=== PATIENT | female | born 1945 | race Caucasian/White ===

== ENCOUNTER 2022-01-20 19:52 | Inpatient (IN) | payer MEDICARE, OTHER ==
[~2022-01-20] VITALS: Ht 162.6 cm; Wt 50.0 kg
[~2022-01-20 19:52] MED LIST: ALBU8.5H17 INH; BUDE10.22 INH; GABA-530 PO; LOSA100T57 PO; MONT-40 PO; TRIA1TAB3 PO
[2022-01-20 20:40] LABS: BASOPHILS % (AUTO) 0.3 % (0-1); EOSINOPHILS # (AUTO) 0.1 X10'3 (0-0.9); EOSINOPHILS % (AUTO) 0.8 % (0-6); HEMOGLOBIN 12.7 g/dl (12.0-16.0); LYMPHOCYTES # (AUTO) 1.2 X10'3 (1.1-4.8); LYMPHOCYTES % (AUTO) 15.1 % (21-51); MEAN CORPUSCULAR HEMOGLOBIN 33.5 PG (27.0-31.0); MEAN CORPUSCULAR HGB CONC 34.3 g/dL (33.0-36.5); MEAN CORPUSCULAR VOLUME 97.5 FL (78-98); MEAN PLATELET VOLUME 6.8 FL (7.4-10.4); MONOCYTES % (AUTO) 13.4 % (2-12); NEUTROPHILS # (AUTO) 5.4 X10'3 (1.8-7.7); NEUTROPHILS % (AUTO) 70.4 % (42-75); PLATELET COUNT 239 X10'3 (140-440); RED BLOOD COUNT 3.79 X10'6 (4.20-5.60); RED CELL DISTRIBUTION WIDTH 12.7 % (11.5-14.5); WHITE BLOOD COUNT 7.7 X10'3 (4.5-11.0)
[2022-01-20] MEDS ORDERED: bumetanide 0.25mg/ml 4ml vial IV SCH (20:50)
[2022-01-20] MEDS ORDERED: bumetanide 0.25mg/ml 4ml vial IV ONE (20:50)
[2022-01-20 20:53] LABS: APTT 26 SECONDS (22-32)
[2022-01-20 21:06] LABS: ALANINE AMINOTRANSFERASE 32 U/L (12-78); ALBUMIN 3.5 G/DL (3.4-5.0); ALBUMIN/GLOBULIN RATIO 1.1 (1.1-1.5); ALKALINE PHOSPHATASE 66 IU/L (46-116); ANION GAP 2 (8-16); ASPARTATE AMINO TRANSFERASE 38 U/L (10-37); BILIRUBIN,TOTAL 0.4 MG/DL (0.1-1.0); BLOOD UREA NITROGEN 28 MG/DL (7-18); BUN/CREATININE RATIO 26.7 (6.6-38.0); CALCIUM 9.2 MG/DL (8.5-10.1); CHLORIDE 96 MMOL/L (99-107); CREATININE 1.05 MG/DL (0.40-0.90); GLUCOSE 127 MG/DL (70-104); SODIUM 142 MMOL/L (135-145); TOTAL PROTEIN 6.8 G/DL (6.4-8.2); eGFR 51 ML/MIN
[2022-01-20 21:14] LABS: TOTAL CARBON DIOXIDE 43.9 MMOL/L (24-32)
--- NOTE | 2022-01-20 22:31 | NUR ---
PT OK TO EAT PER AMARJIT BISWAS, PROVIDED FOOD THAT FAMILY BROUGHT IN
[2022-01-20] MEDS ORDERED: magnesium 4gm in 100ml NS 100 ML IV PRN (22:40)
[2022-01-20] MEDS ORDERED: ondansetron/PF 4mg/2ml inj IV PRN (22:40)
[2022-01-20] MEDS ORDERED: potassium Cl 40MEQ/1/2NS 520ml 520 ML IV PRN (22:40)
[2022-01-20] MEDS ORDERED: magnesium hydroxide 30ml (MOM) UD suspension PO PRN (22:40)
[2022-01-20] MEDS ORDERED: mag hydrox/Alum hydrox/simeth 30ml oral suspension PO PRN (22:40)
[2022-01-20] MEDS ORDERED: acetaminophen 325mg tablet PO PRN (22:40)
[2022-01-20] MEDS ORDERED: magnesium Cl slow-release 64mg tablet PO PRN (22:40)
[2022-01-20] MEDS ORDERED: potassium Cl 20 mEq SR tablet PO PRN ×2 (22:40)
--- NOTE | 2022-01-20 23:51 | NUR ---
PT HAVING INCREASED SOB AND DECREASE IN 02 SAT, RN PAGED RT AT THIS TIME FOR TREATMENT
[2022-01-21] MEDS: albuterol 2.5 MG/3 ML nebule NEB PRN ×3 (00:02→12:09)
--- NOTE | 2022-01-21 00:30 | NUR ---
Patient in room PCU 3024. I have received report from Jodee MORE RN and had the opportunity to ask questions and assume patient care.
[2022-01-21 01:30] VITALS: BP 110/53
--- NOTE | 2022-01-21 01:30 | NUR ---
RECEIVED THE PT ON UNIT AT 0100, MADE SURE TO GET HER COMFORTABLE PT WAS HAVING SEVERE DYSPNEA. VS RECORDED ALL WNL
[2022-01-21 06:00] VITALS: BP 84/46
--- NOTE | 2022-01-21 06:30 | NUR ---
Patient in room PCU 3024. I have received report from Suzanne KAY and had the opportunity to ask questions and assume patient care.
--- NOTE | 2022-01-21 06:56 | NUR ---
Problems reprioritized. Patient report given, questions answered & plan of care reviewed with Cici KAY.
[2022-01-21 07:03] LABS: BASOPHILS % (AUTO) 0.5 % (0-1); EOSINOPHILS # (AUTO) 0.2 X10'3 (0-0.9); EOSINOPHILS % (AUTO) 2.6 % (0-6); HEMATOCRIT 32.4 % (35.0-45.0); HEMOGLOBIN 11.1 g/dl (12.0-16.0); LYMPHOCYTES % (AUTO) 15.3 % (21-51); MEAN CORPUSCULAR HEMOGLOBIN 33.8 PG (27.0-31.0); MEAN CORPUSCULAR HGB CONC 34.1 g/dL (33.0-36.5); MEAN PLATELET VOLUME 6.9 FL (7.4-10.4); MONOCYTES # (AUTO) 1.5 X10'3 (0-0.9); MONOCYTES % (AUTO) 21.5 % (2-12); NEUTROPHILS # (AUTO) 4.1 X10'3 (1.8-7.7); NEUTROPHILS % (AUTO) 60.1 % (42-75); PLATELET COUNT 209 X10'3 (140-440); RED BLOOD COUNT 3.27 X10'6 (4.20-5.60); RED CELL DISTRIBUTION WIDTH 12.7 % (11.5-14.5); WHITE BLOOD COUNT 6.8 X10'3 (4.5-11.0)
[2022-01-21 07:24] LABS: ALANINE AMINOTRANSFERASE 26 U/L (12-78); ALBUMIN 2.9 G/DL (3.4-5.0); ALKALINE PHOSPHATASE 56 IU/L (46-116); ANION GAP 0 (8-16); ASPARTATE AMINO TRANSFERASE 32 U/L (10-37); BILIRUBIN,TOTAL 0.3 MG/DL (0.1-1.0); BLOOD UREA NITROGEN 34 MG/DL (7-18); BUN/CREATININE RATIO 24.8 (6.6-38.0); CALCIUM 8.8 MG/DL (8.5-10.1); CHLORIDE 97 MMOL/L (99-107); CREATININE 1.37 MG/DL (0.40-0.90); GLUCOSE 120 MG/DL (70-104); MAGNESIUM 1.8 MG/DL (1.5-2.4); POTASSIUM 3.4 MMOL/L (3.5-5.1); SODIUM 141 MMOL/L (135-145); TOTAL PROTEIN 5.8 G/DL (6.4-8.2); eGFR 37 ML/MIN
[2022-01-21 07:29] LABS: TOTAL CARBON DIOXIDE 43.6 MMOL/L (24-32)
--- NOTE | 2022-01-21 07:32 | NUR ---
PAGER ID: [phone] MESSAGE: [id number] Blank, CO2 43.6, thank you. Ludmila KAY
[2022-01-21] MEDS: K and/or MAG REPLACEMENT MC SCH ×2 (08:00→19:46)
[2022-01-21] MEDS: docusate sod 100mg capsule PO SCH ×2 (08:13→20:22)
[2022-01-21] MEDS: methylPREDNISolone sod succ/PF 40mg inj. IV SCH ×2 (08:13→20:24)
[2022-01-21] MEDS: heparin, porcine 5000 units/ml vial SQ SCH ×2 (08:13→20:23)
[2022-01-21 11:00] VITALS: BP 112/57
[2022-01-21] MEDS ORDERED: ESCI5TAB17 PO (11:08)
[2022-01-21] MEDS ORDERED: PRED2.5T4 PO (11:08)
[2022-01-21] MEDS ORDERED: DILT120C91 PO (11:08)
--- NOTE | 2022-01-21 11:54 | NUR ---
Noted pt BMI 18.9 low for age. Pt admit DX COPD exacerbation w/ initial confusion both reporting no wt loss and 2-13 pounds wt loss past 3 months per EMR. Pt now AOx4 w/ normal strength, no edema/wounds, and PO 50% first heart healthy breakfast following late night meal brought in from family last night per EMR. Current bed scaled wt 50kg w/ prior admit 01/2021 54kg bed scale ~7.5% loss 11 months non-severe. Pt lacks minimum malnutrition criteria at this time. ALENA d/w RN regarding liberalizing to regular diet if MD agreeable given pt age/wt. Will monitor for further malnutrition criteria and nutrition intervention needs. Addendum: 01/21/22 at [address] Amended: Links added.
[2022-01-21] MEDS ORDERED: GABA300C PO (12:51)
[2022-01-21] MEDS ORDERED: albuterol 2.5 MG/3 ML nebule NEB PRN (13:55)
[2022-01-21] MEDS: furosemide 20 MG/2 ML vial IV SCH (15:26)
[2022-01-21 15:29] VITALS: BP 105/52
[2022-01-21] MEDS: azithromycin 250mg tablet PO SCH (15:29)
[2022-01-21] MEDS: losartan 50mg tablet PO SCH (15:29)
[2022-01-21] MEDS: albuterol 2.5 MG/3 ML nebule NEB SCH ×2 (15:47→20:38)
--- NOTE | 2022-01-21 18:42 | NUR ---
Patient in room PCU 3024. I have received report from CHARLIE KAY and had the opportunity to ask questions and assume patient care.
--- NOTE | 2022-01-21 19:00 | NUR ---
REQUESTING TO SPEAK TO DAY SHIFT MD. TRYING TO GET INFORMATION REGARDING HER TREATMENT. WILL NOTIFY DAY SHIFT RN.
[2022-01-21] MEDS: gabapentin 300mg capsule PO SCH (20:22)
[2022-01-21] MEDS: budesonide 0.5mg/2ml UD nebule IH SCH (20:40)
[2022-01-21 22:00] VITALS: BP 103/58
[2022-01-22 02:00] VITALS: BP 108/72
[2022-01-22 03:30] VITALS: BP 117/65
[2022-01-22 03:49] LABS: ABG BASE EXCESS 21.3 mmol/L (-2.0-2.0); ABG HCO3 54.1 mmol/L (22.0-26.0); ABG OXYGEN SATURATION 77.8 % (94-97); ABG PCO2 (T) 115.5 mmHg (32.0-45.0); ABG PO2 (T) 42.1 mmHg (75.0-100.0); ALLEN'S TEST Yes; FCOHb 0.1 % (0.0-3.9); FLOW 1 L/min; FMetHb 0.2 % (0.0-1.5); FO2Hb 77.6 % (94-97); PATIENT TEMPERATURE 36.4
[2022-01-22] MEDS: albuterol 2.5 MG/3 ML nebule NEB SCH ×4 (04:19→20:09)
[2022-01-22 05:47] LABS: ABG BASE EXCESS 18.1 mmol/L (-2.0-2.0); ABG HCO3 48.1 mmol/L (22.0-26.0); ALLEN'S TEST POSITIVE; FCOHb 0.1 % (0.0-3.9); FMetHb 0.2 % (0.0-1.5); FO2Hb 77.8 % (94-97); PATIENT TEMPERATURE 36.7; TOTAL HEMOGLOBIN 12.5 G/dl (12.0-16.0)
[2022-01-22 06:00] VITALS: BP 90/51
--- NOTE | 2022-01-22 06:37 | NUR ---
Problems reprioritized. Patient report given, questions answered & plan of care reviewed with CARLA BROWER.
[2022-01-22 07:17] LABS: BASOPHILS % (AUTO) 0.1 % (0-1); EOSINOPHILS % (AUTO) 0 % (0-6); HEMATOCRIT 34.6 % (35.0-45.0); HEMOGLOBIN 11.7 g/dl (12.0-16.0); LYMPHOCYTES # (AUTO) 0.4 X10'3 (1.1-4.8); LYMPHOCYTES % (AUTO) 8.4 % (21-51); MEAN CORPUSCULAR HEMOGLOBIN 33.7 PG (27.0-31.0); MEAN CORPUSCULAR HGB CONC 33.7 g/dL (33.0-36.5); MEAN PLATELET VOLUME 7.5 FL (7.4-10.4); MONOCYTES # (AUTO) 0.2 X10'3 (0-0.9); MONOCYTES % (AUTO) 4.5 % (2-12); NEUTROPHILS # (AUTO) 4.2 X10'3 (1.8-7.7); PLATELET COUNT 209 X10'3 (140-440); RED BLOOD COUNT 3.46 X10'6 (4.20-5.60); RED CELL DISTRIBUTION WIDTH 12.5 % (11.5-14.5); WHITE BLOOD COUNT 4.8 X10'3 (4.5-11.0)
[2022-01-22] MEDS: budesonide 0.5mg/2ml UD nebule IH SCH ×2 (07:26→20:09)
[2022-01-22 07:36] LABS: ALANINE AMINOTRANSFERASE 23 U/L (12-78); ALKALINE PHOSPHATASE 55 IU/L (46-116); ANION GAP 0 (8-16); ASPARTATE AMINO TRANSFERASE 27 U/L (10-37); BILIRUBIN,TOTAL 0.3 MG/DL (0.1-1.0); BLOOD UREA NITROGEN 49 MG/DL (7-18); BUN/CREATININE RATIO 35.5 (6.6-38.0); CALCIUM 8.9 MG/DL (8.5-10.1); CHLORIDE 97 MMOL/L (99-107); CREATININE 1.38 MG/DL (0.40-0.90); GLUCOSE 169 MG/DL (70-104); MAGNESIUM 1.9 MG/DL (1.5-2.4); POTASSIUM 4.6 MMOL/L (3.5-5.1); SODIUM 139 MMOL/L (135-145); eGFR 37 ML/MIN
[2022-01-22 07:39] LABS: TOTAL CARBON DIOXIDE 42.2 MMOL/L (24-32)
[2022-01-22] MEDS: furosemide 20 MG/2 ML vial IV SCH (08:00)
[2022-01-22] MEDS: losartan 50mg tablet PO SCH (08:00)
[2022-01-22] MEDS: triamterene/HCTZ 37.5/25mg tablet PO SCH (08:00)
[2022-01-22] MEDS: docusate sod 100mg capsule PO SCH ×2 (08:00→19:50)
[2022-01-22] MEDS: K and/or MAG REPLACEMENT MC SCH ×2 (08:00→20:00)
[2022-01-22] MEDS: methylPREDNISolone sod succ/PF 40mg inj. IV SCH ×2 (10:30→19:49)
[2022-01-22] MEDS: ESCITALOPRAM OXALATE 5 MG TABLET PO SCH (10:31)
[2022-01-22] MEDS: montelukast 10mg tablet PO SCH (10:31)
[2022-01-22] MEDS: heparin, porcine 5000 units/ml vial SQ SCH ×2 (10:31→19:50)
[2022-01-22] MEDS: gabapentin 300mg capsule PO SCH (10:32)
[2022-01-22] MEDS: azithromycin 250mg tablet PO SCH (10:32)
[2022-01-22] MEDS: diltiazem CD 120mg capsule (once-daily) PO SCH (10:32)
--- NOTE | 2022-01-22 10:46 | NUR ---
sent to rust: [id number] Blank: Pt's spouse at bedside and wants to speak to you please. thank you.
[2022-01-22 18:00] VITALS: BP 100/41
--- NOTE | 2022-01-22 18:15 | NUR ---
Patient in room PCU 3024. I have received report from Masha and had the opportunity to ask questions and assume patient care.
[2022-01-23] MEDS: albuterol 2.5 MG/3 ML nebule NEB SCH ×2 (03:21→08:48)
[2022-01-23 06:00] VITALS: BP 130/51
--- NOTE | 2022-01-23 06:29 | NUR ---
Problems reprioritized. Patient report given, questions answered & plan of care reviewed with Cuca KAY.
[2022-01-23 06:31] LABS: BASOPHILS % (AUTO) 0.1 % (0-1); EOSINOPHILS % (AUTO) 0 % (0-6); HEMATOCRIT 37.8 % (35.0-45.0); HEMOGLOBIN 12.5 g/dl (12.0-16.0); LYMPHOCYTES # (AUTO) 0.5 X10'3 (1.1-4.8); LYMPHOCYTES % (AUTO) 8.1 % (21-51); MEAN CORPUSCULAR VOLUME 100.1 FL (78-98); MEAN PLATELET VOLUME 7.5 FL (7.4-10.4); MONOCYTES # (AUTO) 0.4 X10'3 (0-0.9); MONOCYTES % (AUTO) 5.7 % (2-12); NEUTROPHILS # (AUTO) 5.8 X10'3 (1.8-7.7); NEUTROPHILS % (AUTO) 86.1 % (42-75); PLATELET COUNT 207 X10'3 (140-440); RED BLOOD COUNT 3.77 X10'6 (4.20-5.60); RED CELL DISTRIBUTION WIDTH 13.1 % (11.5-14.5); WHITE BLOOD COUNT 6.7 X10'3 (4.5-11.0)
--- NOTE | 2022-01-23 06:45 | NUR ---
TECHNICAL MAINTENANCE SPECIALIST ASSESSMENT REVIEWED AND IN AGREEMENT.
[2022-01-23 06:49] LABS: ALANINE AMINOTRANSFERASE 26 U/L (12-78); ALBUMIN 3.3 G/DL (3.4-5.0); ALKALINE PHOSPHATASE 55 IU/L (46-116); ANION GAP -3 (8-16); ASPARTATE AMINO TRANSFERASE 26 U/L (10-37); BILIRUBIN,TOTAL 0.3 MG/DL (0.1-1.0); BLOOD UREA NITROGEN 56 MG/DL (7-18); BUN/CREATININE RATIO 47.9 (6.6-38.0); CALCIUM 8.8 MG/DL (8.5-10.1); CHLORIDE 95 MMOL/L (99-107); CREATININE 1.17 MG/DL (0.40-0.90); GLUCOSE 149 MG/DL (70-104); MAGNESIUM 1.9 MG/DL (1.5-2.4); POTASSIUM 5.1 MMOL/L (3.5-5.1); SODIUM 134 MMOL/L (135-145); TOTAL PROTEIN 6.5 G/DL (6.4-8.2); eGFR 45 ML/MIN
[2022-01-23 06:52] LABS: TOTAL CARBON DIOXIDE 42.2 MMOL/L (24-32)
[2022-01-23] MEDS ORDERED: gabapentin 400mg capsule PO SCH (08:00)
[2022-01-23] MEDS: K and/or MAG REPLACEMENT MC SCH (08:00)
[2022-01-23] MEDS: budesonide 0.5mg/2ml UD nebule IH SCH (08:48)
[2022-01-23 10:00] VITALS: BP 161/61
[2022-01-23] MEDS: methylPREDNISolone sod succ/PF 40mg inj. IV SCH (10:18)
[2022-01-23] MEDS: ESCITALOPRAM OXALATE 5 MG TABLET PO SCH (10:18)
[2022-01-23] MEDS: losartan 50mg tablet PO SCH (10:19)
[2022-01-23] MEDS: triamterene/HCTZ 37.5/25mg tablet PO SCH (10:19)
[2022-01-23] MEDS: docusate sod 100mg capsule PO SCH (10:20)
[2022-01-23] MEDS: diltiazem CD 120mg capsule (once-daily) PO SCH (10:20)
[2022-01-23] MEDS: azithromycin 250mg tablet PO SCH (10:21)
[2022-01-23] MEDS: montelukast 10mg tablet PO SCH (10:21)
[2022-01-23] MEDS: heparin, porcine 5000 units/ml vial SQ SCH (10:22)
[2022-01-23] MEDS: furosemide 20 MG/2 ML vial IV SCH (10:22)
--- NOTE | 2022-01-23 14:21 | NUR ---
PAGER ID: [phone] MESSAGE: [id number] Eliana Navarro The patients is here wondering about discharge. kel 1950
[2022-01-23] MEDS ORDERED: FURO-150 PO (14:27)
[2022-01-23] MEDS ORDERED: PRED10TA23 PO (14:27)
[2022-01-23] MEDS ORDERED: AZI25OT PO (14:27)
== END 2022-01-23 15:33 | disposition home or self-care (01) | DRG 202 ==
LOC: ER 19:53 → ED HOLD 22:43 → PCU 3S 01-21 01:00
PROVIDERS: ADMIT Internal Medicine; ATTEND Internal Medicine
PROC: 5A09357 Assistance with Respiratory Ventilation, Less than 24 Consecutive Hours, Continuous Positive Airway Pressure (ICD-10-PCS; principal; 2022-01-22)
PROC: 5A09357 Assistance with Respiratory Ventilation, Less than 24 Consecutive Hours, Continuous Positive Airway Pressure (ICD-10-PCS; 2022-01-23)
DX: J20.9 Acute bronchitis, unspecified (principal); E87.29 Other acidosis; J44.1 Chronic obstructive pulmonary disease with (acute) exacerbation; J96.12 Chronic respiratory failure with hypercapnia; J96.11 Chronic respiratory failure with hypoxia; J44.0 Chronic obstructive pulmonary disease with (acute) lower respiratory infection; I27.81 Cor pulmonale (chronic); Z20.822 Contact with and (suspected) exposure to COVID-19; I10 Essential (primary) hypertension; I27.20 Pulmonary hypertension, unspecified; M81.0 Age-related osteoporosis without current pathological fracture; F32.A Depression, unspecified; R77.8 Other specified abnormalities of plasma proteins; Z79.52 Long term (current) use of systemic steroids; Z91.199 Patient's noncompliance with other medical treatment and regimen due to unspecified reason; Z79.899 Other long term (current) drug therapy
CPT/HCPCS: 36415; 36600; 71045; 80053; 82803; 82948; 83735; 83880; 84484; 85018; 85025; 85610; 85730; 87502; 87503; 87811; 93005; 93306; 94640; 94660; 94760; 96374; 97161; 97530; 97535; 99285; G0378; J1644; J1940; J2920; J3490

== ENCOUNTER 2022-09-06 19:50 | Inpatient (IN) | payer MEDICARE, OTHER ==
[~2022-09-06] VITALS: Ht 149.9 cm; Wt 51.8 kg
[~2022-09-06 19:50] MED LIST changes: +DILT120C77 PO; +ESCI5TAB17 PO; +FURO-150 PO; -GABA-530 PO; +GABA300C PO; -LOSA100T57 PO; +LOSA100T58 PO; -TRIA1TAB3 PO
[2022-09-06 20:17] LABS: BASOPHILS % (AUTO) 0.2 % (0-1); EOSINOPHILS # (AUTO) 0.2 X10'3 (0-0.9); EOSINOPHILS % (AUTO) 2.3 % (0-6); HEMOGLOBIN 12.7 g/dl (12.0-16.0); LYMPHOCYTES # (AUTO) 1.2 X10'3 (1.1-4.8); MEAN CORPUSCULAR HGB CONC 32.6 g/dL (33.0-36.5); MEAN CORPUSCULAR VOLUME 98.2 FL (78-98); MEAN PLATELET VOLUME 6.9 FL (7.4-10.4); MONOCYTES % (AUTO) 12.8 % (2-12); NEUTROPHILS # (AUTO) 5.7 X10'3 (1.8-7.7); NEUTROPHILS % (AUTO) 69.7 % (42-75); PLATELET COUNT 291 X10'3 (140-440); RED BLOOD COUNT 3.98 X10'6 (4.20-5.60); RED CELL DISTRIBUTION WIDTH 14.3 % (11.5-14.5); WHITE BLOOD COUNT 8.1 X10'3 (4.5-11.0)
[2022-09-06 20:29] LABS: APTT 26 SECONDS (22-32)
[2022-09-06 20:40] LABS: ALANINE AMINOTRANSFERASE 87 U/L (12-78); ALBUMIN 3.6 G/DL (3.4-5.0); ALBUMIN/GLOBULIN RATIO 0.9 (1.1-1.5); ALKALINE PHOSPHATASE 76 IU/L (46-116); ANION GAP 5 (8-16); ASPARTATE AMINO TRANSFERASE 46 U/L (10-37); BILIRUBIN,TOTAL 0.4 MG/DL (0.1-1.0); BLOOD UREA NITROGEN 26 MG/DL (7-18); CALCIUM 9.1 MG/DL (8.5-10.1); CHLORIDE 96 MMOL/L (99-107); CREATININE 1.18 MG/DL (0.40-0.90); GLUCOSE 131 MG/DL (70-104); POTASSIUM 3.6 MMOL/L (3.5-5.1); SODIUM 141 MMOL/L (135-145); TOTAL CARBON DIOXIDE 39.6 MMOL/L (24-32); TOTAL PROTEIN 7.4 G/DL (6.4-8.2); eGFR 45 ML/MIN
[2022-09-06 21:02] LABS: ABG BASE EXCESS 3.8 mmol/L (-2.0-2.0); ABG HCO3 35.2 mmol/L (22.0-26.0); ABG OXYGEN SATURATION 89.3 % (94-97); ABG PCO2 (T) 95.6 mmHg (32.0-45.0); ABG PO2 (T) 68.5 mmHg (75.0-100.0); FCOHb 0.9 % (0.0-3.9); FMetHb 0.3 % (0.0-1.5); FO2Hb 88.2 % (94-97); PATIENT TEMPERATURE 37.1; TOTAL HEMOGLOBIN 13.3 G/dl (12.0-16.0)
[2022-09-06 22:41] LABS: ABG BASE EXCESS 11.3 mmol/L (-2.0-2.0); ABG HCO3 42.9 mmol/L (22.0-26.0); ABG OXYGEN SATURATION 88.9 % (94-97); ABG PCO2 (T) 104.4 mmHg (32.0-45.0); ABG PO2 (T) 64.4 mmHg (75.0-100.0); ALLEN'S TEST Modified; FCOHb 0.6 % (0.0-3.9); FMetHb 0.4 % (0.0-1.5); RESPIRATORY RATE 20 b/min; TOTAL HEMOGLOBIN 12.8 G/dl (12.0-16.0)
--- NOTE | 2022-09-06 23:28 | NUR ---
PT SATING 80-92. CO2 ELEVATED, MOVED TO ROOM 3 TO CONSIDER INTUBATION.
[2022-09-06] MEDS ORDERED: methylPREDNISolone sod succ 125mg/2ml vial IV ONE (23:50)
[2022-09-06] MEDS ORDERED: ipratropium/albuterol 3ml nebule NEB ONE (23:50)
[2022-09-07] VITALS (19 sets, daily range): BP systolic 94–141; BP diastolic 42–69
--- NOTE | 2022-09-07 00:45 | NUR ---
RT with patient getting blood gas.
[2022-09-07 00:56] LABS: ABG BASE EXCESS 12.3 mmol/L (-2.0-2.0); ABG HCO3 41.9 mmol/L (22.0-26.0); ABG OXYGEN SATURATION 79.7 % (94-97); ABG PCO2 (T) 84.2 mmHg (32.0-45.0); ABG PO2 (T) 46.8 mmHg (75.0-100.0); FCOHb 1.1 % (0.0-3.9); FMetHb 0.2 % (0.0-1.5); FO2Hb 78.7 % (94-97); RESPIRATORY RATE 18 b/min; TOTAL HEMOGLOBIN 12.6 G/dl (12.0-16.0)
[2022-09-07] MEDS ORDERED: morphine 2 MG/ML inj. syringe IV PRN (02:50)
[2022-09-07] MEDS ORDERED: acetaminophen 325mg tablet PO PRN ×2 (02:50)
[2022-09-07] MEDS ORDERED: azithromycin 250mg tablet PO ONE (03:05)
[2022-09-07] MEDS ORDERED: PRE5T PO (03:59)
[2022-09-07] MEDS ORDERED: TRIA1TAB3 PO (03:59)
[2022-09-07] MEDS ORDERED: ALBU18HF2 INH (03:59)
[2022-09-07] MEDS ORDERED: FLUT16SP26 BOTHNARES (03:59)
--- NOTE | 2022-09-07 04:15 | NUR ---
Patient in room ICU 2038. I have received report from Bren KAY and had the opportunity to ask questions and assume patient care.Patient assisted to bed from ER maximo. Patient on BiPAP on 30% FIO2. Patient desaturating with turns down to low 80s even though on BiPAP. BP 131/70. Patient wakes up and follows commands occasionally, but not cooperative at times. Will continue to monitor patient.
--- NOTE | 2022-09-07 06:05 | NUR ---
MD Leong calling for update on patient. Informed MD that patient is unable to tolerate being off BiPAP for PO meds. states he will change PO meds to IV version.
--- NOTE | 2022-09-07 06:30 | NUR ---
Problems reprioritized. Patient report given, questions answered & plan of care reviewed with Elaina KAY.
[2022-09-07] MEDS: ipratropium/albuterol 3ml nebule NEB SCH ×3 (07:19→21:07)
[2022-09-07] MEDS ORDERED: pantoprazole 40mg Tablet.DR PO SCH (07:30)
[2022-09-07] MEDS: CefTRIAXone 2gm/D5W 50ml BAG 50 ML IV SCH (07:49)
[2022-09-07] MEDS: pantoprazole 40MG/NS 100ML BAG 100 ML IV SCH (07:49)
[2022-09-07] MEDS: heparin, porcine 5000 units/ml vial SQ SCH ×2 (07:49→21:02)
[2022-09-07] MEDS ORDERED: methylPREDNISolone sod succ/PF 40mg inj. IV SCH (08:00)
[2022-09-07] MEDS: azithromycin/NS 500mg/250ml 250 ML IV SCH (09:20)
[2022-09-07 09:30] LABS: BASOPHILS % (AUTO) 0.3 % (0-1); EOSINOPHILS % (AUTO) 0.1 % (0-6); HEMATOCRIT 37.6 % (35.0-45.0); HEMOGLOBIN 12.1 g/dl (12.0-16.0); LYMPHOCYTES # (AUTO) 0.6 X10'3 (1.1-4.8); LYMPHOCYTES % (AUTO) 17.3 % (21-51); MEAN CORPUSCULAR HEMOGLOBIN 31.5 PG (27.0-31.0); MEAN CORPUSCULAR HGB CONC 32.2 g/dL (33.0-36.5); MEAN PLATELET VOLUME 6.9 FL (7.4-10.4); MONOCYTES # (AUTO) 0.1 X10'3 (0-0.9); MONOCYTES % (AUTO) 2.5 % (2-12); NEUTROPHILS # (AUTO) 2.6 X10'3 (1.8-7.7); NEUTROPHILS % (AUTO) 79.8 % (42-75); PLATELET COUNT 230 X10'3 (140-440); RED BLOOD COUNT 3.83 X10'6 (4.20-5.60); RED CELL DISTRIBUTION WIDTH 13.9 % (11.5-14.5); WHITE BLOOD COUNT 3.3 X10'3 (4.5-11.0)
[2022-09-07 10:24] LABS: ALANINE AMINOTRANSFERASE 74 U/L (12-78); ALBUMIN 3.1 G/DL (3.4-5.0); ALBUMIN/GLOBULIN RATIO 0.9 (1.1-1.5); ALKALINE PHOSPHATASE 70 IU/L (46-116); ANION GAP 13 (8-16); ASPARTATE AMINO TRANSFERASE 38 U/L (10-37); BILIRUBIN,TOTAL 0.4 MG/DL (0.1-1.0); BLOOD UREA NITROGEN 28 MG/DL (7-18); BUN/CREATININE RATIO 23.9 (10.0-20.0); CALCIUM 9.1 MG/DL (8.5-10.1); CHLORIDE 95 MMOL/L (99-107); CREATININE 1.17 MG/DL (0.40-0.90); GLUCOSE 98 MG/DL (70-104); POTASSIUM 3.9 MMOL/L (3.5-5.1); SODIUM 138 MMOL/L (135-145); TOTAL CARBON DIOXIDE 30.1 MMOL/L (24-32); TOTAL PROTEIN 6.7 G/DL (6.4-8.2); eGFR 45 ML/MIN
[2022-09-07] MEDS ORDERED: JUVEN Smoothie Arginine/Glut./Ca2+Bmb (Juven 19.3pkt) 240ml cup PO SCH (13:00)
[2022-09-07] MEDS: methylPREDNISolone sod succ/PF 40mg inj. IV SCH ×2 (13:36→21:02)
--- NOTE | 2022-09-07 15:03 | NUR ---
Malnutrition consult: Pt reports wt loss with decreased appetite/PO intake per malnutrition risk screen with RN. Per SO pt usually eats in the morning however has no energy to eat in the evening. Per EMR pt with bed scaled wt h/o 54.55 kg taken 03/03/21 with most recent bed scaled wt of 50 kg taken 01/21/22, current bed scaled wt is 51.8 kg; no apparent wt loss. Diet has just been advanced to regular from NPO, pending first meal. Pt with no documented significant decrease in muscle strength though with BLE 2+ mild edema. Pt currently lacks a minimum of two criteria for malnutrition though will continue to monitor s/s of malnutrition. requests pt to receive ONS TID, RN ordered Ensure Enlive. RD will make ONS adjustment recommendations as appropriate pending trends in PO intake. Will continue to follow. Addendum: 09/07/22 at [address] Amended: Links added.
[2022-09-07] MEDS ORDERED: lactose-reduced food (Ensure Enlive) - 237ml bottle PO SCH (18:00)
--- NOTE | 2022-09-07 18:24 | NUR ---
Problems reprioritized. Patient report given, questions answered & plan of care reviewed with Edith KAY.
--- NOTE | 2022-09-07 19:39 | NUR ---
patient calling , claimed nobody seen and taking care of her , sitting in bed , on 4L , claimed to RN nobody taking care of her the whole day and she is so hungry and cold , tray served warm blanket placed and she start eating with assistance .
[2022-09-07] MEDS ORDERED: azithromycin 250mg tablet PO SCH (21:00)
--- NOTE | 2022-09-07 22:11 | NUR ---
complained of SOB while eating , bipap placed , came and left , patient claimed breathing better at this time.
[2022-09-08] VITALS (19 sets, daily range): BP systolic 100–131; BP diastolic 46–72
[2022-09-08] MEDS: methylPREDNISolone sod succ/PF 40mg inj. IV SCH ×3 (02:00→14:00)
[2022-09-08] MEDS: ipratropium/albuterol 3ml nebule NEB SCH ×4 (03:09→20:56)
[2022-09-08 06:15] LABS: ALBUMIN 2.9 G/DL (3.4-5.0); ANION GAP 0 (8-16); BLOOD UREA NITROGEN 41 MG/DL (7-18); BUN/CREATININE RATIO 31.1 (10.0-20.0); CALCIUM 8.5 MG/DL (8.5-10.1); CHLORIDE 98 MMOL/L (99-107); CREATININE 1.32 MG/DL (0.40-0.90); GLUCOSE 145 MG/DL (70-104); MAGNESIUM 1.6 MG/DL (1.5-2.4); POTASSIUM 4.2 MMOL/L (3.5-5.1); SODIUM 139 MMOL/L (135-145); eGFR 39 ML/MIN
[2022-09-08 06:22] LABS: TOTAL CARBON DIOXIDE 40.7 MMOL/L (24-32)
[2022-09-08 06:27] LABS: BASOPHILS % (AUTO) 0.1 % (0-1); EOSINOPHILS % (AUTO) 0 % (0-6); HEMATOCRIT 33.8 % (35.0-45.0); HEMOGLOBIN 11.1 g/dl (12.0-16.0); LYMPHOCYTES # (AUTO) 0.5 X10'3 (1.1-4.8); LYMPHOCYTES % (AUTO) 19.7 % (21-51); MEAN CORPUSCULAR HEMOGLOBIN 31.8 PG (27.0-31.0); MEAN CORPUSCULAR HGB CONC 32.8 g/dL (33.0-36.5); MEAN CORPUSCULAR VOLUME 96.8 FL (78-98); MEAN PLATELET VOLUME 7.4 FL (7.4-10.4); MONOCYTES # (AUTO) 0.3 X10'3 (0-0.9); MONOCYTES % (AUTO) 13.1 % (2-12); NEUTROPHILS # (AUTO) 1.7 X10'3 (1.8-7.7); NEUTROPHILS % (AUTO) 67.1 % (42-75); PLATELET COUNT 238 X10'3 (140-440); RED BLOOD COUNT 3.49 X10'6 (4.20-5.60); WHITE BLOOD COUNT 2.5 X10'3 (4.5-11.0)
--- NOTE | 2022-09-08 06:30 | NUR ---
Patient in room ICU 2038. I have received report from adam and had the opportunity to ask questions and assume patient care.
--- NOTE | 2022-09-08 06:44 | NUR ---
Problems reprioritized. Patient report given, questions answered & plan of care reviewed with ANDRE RN.
[2022-09-08] MEDS: triamterene/HCTZ 37.5/25mg tablet PO SCH (08:00)
[2022-09-08] MEDS: losartan 50mg tablet PO SCH (08:00)
[2022-09-08] MEDS: ESCITALOPRAM OXALATE 5 MG TABLET PO SCH (08:10)
[2022-09-08] MEDS: azithromycin/NS 500mg/250ml 250 ML IV SCH (08:10)
[2022-09-08] MEDS: CefTRIAXone 2gm/D5W 50ml BAG 50 ML IV SCH (08:11)
[2022-09-08] MEDS: heparin, porcine 5000 units/ml vial SQ SCH ×2 (08:11→21:13)
[2022-09-08] MEDS: pantoprazole 40MG/NS 100ML BAG 100 ML IV SCH (08:16)
[2022-09-08 10:12] LABS: ABG BASE EXCESS 5.6 mmol/L (-2.0-2.0); ABG HCO3 32.8 mmol/L (22.0-26.0); ABG OXYGEN SATURATION 95.4 % (94-97); ABG PCO2 (T) 61.3 mmHg (32.0-45.0); ABG PO2 (T) 81.5 mmHg (75.0-100.0); ALLEN'S TEST POSITIVE; FCOHb 0.3 % (0.0-3.9); FLOW 2 L/min; FMetHb 0.4 % (0.0-1.5); FO2Hb 94.7 % (94-97); TOTAL HEMOGLOBIN 11.8 G/dl (12.0-16.0)
[2022-09-08 10:36] LABS: TOTAL CELLS COUNTED 100
[2022-09-08 11:19] LABS: PLATELET ESTIMATE NORMAL
--- NOTE | 2022-09-08 11:44 | NUR ---
Per RN pt does not want to receive Ensure as she dislikes it. Pt is eating well, documented with 50% PO intake of first meal with 75-100% PO intake of breakfast this morning. Discontinuing ONS is appropriate given adequate meal intake and pt reports of disliking Ensure. RN discontinued ONS order in EMR. D/w dietary to send a smoothie WL and shake WS. Will continue to follow and monitor need for further nutrition intervention. Addendum: 09/08/22 at [address] Amended: Links added.
--- NOTE | 2022-09-08 12:46 | NUR ---
pt using bipap off and on alternates with o2nc at 2l. goal to keep sat 88 to 90 as able. dyspnea noted on occ, pt able to ask for bedpan , so the wick removed. pt able to turn side to side in bed with min assist. stood at bs with PT- tolerated well. diet taken well
--- NOTE | 2022-09-08 13:45 | NUR ---
report to roverto in tele, pt transferred to [id number] by bed. notified of move. bipap to new room
--- NOTE | 2022-09-08 18:56 | NUR ---
Problems reprioritized. Patient report given, questions answered & plan of care reviewed with Aysha KAY, patient stable at transfer of care.
[2022-09-08] MEDS ORDERED: acetaZOLAMIDE IV 500mg inj IV ONE (20:10)
[2022-09-09 02:00] VITALS: BP 112/67
[2022-09-09] MEDS: ipratropium/albuterol 3ml nebule NEB SCH ×4 (02:36→19:54)
[2022-09-09 06:00] VITALS: BP 117/63
--- NOTE | 2022-09-09 06:25 | NUR ---
Patient in room PCU 3017. I have received report from ELIZA Olmstead and had the opportunity to ask questions and assume patient care.
--- NOTE | 2022-09-09 06:34 | NUR ---
Problems reprioritized. Patient report given, questions answered & plan of care reviewed with Pauline KAY. Addendum: 09/09/22 at 0635 by Aysha Merritt RN Amended: Links added.
[2022-09-09 08:42] LABS: BASOPHILS % (AUTO) 0.1 % (0-1); EOSINOPHILS % (AUTO) 0 % (0-6); HEMATOCRIT 33.4 % (35.0-45.0); HEMOGLOBIN 10.7 g/dl (12.0-16.0); LYMPHOCYTES # (AUTO) 0.8 X10'3 (1.1-4.8); LYMPHOCYTES % (AUTO) 14.1 % (21-51); MEAN CORPUSCULAR HEMOGLOBIN 31.5 PG (27.0-31.0); MEAN CORPUSCULAR HGB CONC 32.1 g/dL (33.0-36.5); MEAN PLATELET VOLUME 7.3 FL (7.4-10.4); MONOCYTES # (AUTO) 1.2 X10'3 (0-0.9); MONOCYTES % (AUTO) 21.5 % (2-12); NEUTROPHILS # (AUTO) 3.7 X10'3 (1.8-7.7); NEUTROPHILS % (AUTO) 64.3 % (42-75); PLATELET COUNT 227 X10'3 (140-440); RED BLOOD COUNT 3.41 X10'6 (4.20-5.60); RED CELL DISTRIBUTION WIDTH 14.2 % (11.5-14.5); WHITE BLOOD COUNT 5.8 X10'3 (4.5-11.0)
[2022-09-09 08:57] LABS: ANION GAP 3 (8-16); BLOOD UREA NITROGEN 40 MG/DL (7-18); CALCIUM 8.2 MG/DL (8.5-10.1); CHLORIDE 100 MMOL/L (99-107); CREATININE 1.43 MG/DL (0.40-0.90); GLUCOSE 104 MG/DL (70-104); MAGNESIUM 1.9 MG/DL (1.5-2.4); POTASSIUM 3.8 MMOL/L (3.5-5.1); SODIUM 142 MMOL/L (135-145); TOTAL CARBON DIOXIDE 39.3 MMOL/L (24-32); eGFR 36 ML/MIN
[2022-09-09] MEDS: pantoprazole 40MG/NS 100ML BAG 100 ML IV SCH (09:26)
[2022-09-09] MEDS: methylPREDNISolone sod succ/PF 40mg inj. IV SCH ×2 (09:30→20:35)
[2022-09-09] MEDS: acetaZOLAMIDE IV 500mg inj IV SCH (09:35)
[2022-09-09] MEDS: heparin, porcine 5000 units/ml vial SQ SCH ×2 (09:35→20:35)
[2022-09-09] MEDS: losartan 50mg tablet PO SCH (09:36)
[2022-09-09] MEDS: ESCITALOPRAM OXALATE 5 MG TABLET PO SCH (09:36)
[2022-09-09] MEDS: triamterene/HCTZ 37.5/25mg tablet PO SCH (09:36)
[2022-09-09] MEDS: CefTRIAXone 2gm/D5W 50ml BAG 50 ML IV SCH (09:50)
[2022-09-09] MEDS: azithromycin/NS 500mg/250ml 250 ML IV SCH (10:17)
[2022-09-09 11:00] VITALS: BP 120/65
--- NOTE | 2022-09-09 13:54 | NUR ---
PRESSURE ULCER EDUCATION: DEFINITION: A pressure ulcer is an area of skin that breaks down when you stay in one position too long. The constant pressure against the skin reduces the blood flow to that area and the affected tissue dies. CAUSES: "Being bedridden or in a wheelchair "Fragile skin "Having a chronic condition, such as diabetes or vascular disease "Inability to move certain parts of your body without assistance "Older age "Incontinence of urine or stool SYMPTOMS: "A reddened area that DOES NOT turn white when pressed on - this can be the beginning of a pressure ulcer "A blister, deep sore or a crater - these can be advanced pressure ulcers FIRST AID: "Relieve the pressure on this area "Keep the area clean and dry "Call your primary doctor if you see any of the above symptoms "DO NOT massage the area "DO NOT use a donut shaped or ring shaped pillow- these actually interfere with the blood flow and cause complications PREVENTION: "Check for pressure ulcers everyday "Change position at least every two hours to relieve pressure "Use items that help relieve pressure- pillows, sheepskin, foam padding, and powders. "Keep skin clean and dry "Eat healthy well balanced meals "Exercise daily IF YOU SEE ANY OF THESE SYMPTOMS WHILE IN THE HOSPITAL - TELL YOUR NURSE IMMEDIATELY. IF YOU SEE ANY OF THESE SYMPTOMS WHILE AT HOME OR HAVE ANY QUESTIONS OR CONCERNS ABOUT PRESSURE ULCERS - CALL YOUR PRIMARY DOCTOR IMMEDIATELY. Addendum: 09/09/22 at 1354 by Tavon Fatima RN Amended: Links added.
[2022-09-09 15:00] VITALS: BP 118/70
[2022-09-09 18:00] VITALS: BP 137/72
--- NOTE | 2022-09-09 18:15 | NUR ---
Problems reprioritized. Patient report given, questions answered & plan of care reviewed with ELIZA Adams.
--- NOTE | 2022-09-09 18:30 | NUR ---
Received report from primary care nurse Pauline RN. Assumed patient care. Patient is awake and alert on 2LNC. In no apparent distress eating her meal and talking on the phone. Denies needs at this time. Call light and items of frequent use within reach. Will continue to monitor for changes.
[2022-09-09 22:00] VITALS: BP 126/68
[2022-09-10 02:00] VITALS: BP 142/76
[2022-09-10] MEDS: ipratropium/albuterol 3ml nebule NEB SCH ×2 (03:32→10:16)
[2022-09-10 06:00] VITALS: BP 115/73
--- NOTE | 2022-09-10 06:37 | NUR ---
Reported off to Pauline RN. Patient resting with relaxed and unlabored respirations on BIPAP. In no apparent distress. Call light and items of frequent use within reach.
--- NOTE | 2022-09-10 06:50 | NUR ---
Patient in room PCU 3017. I have received report from ELIZA Adams and had the opportunity to ask questions and assume patient care.
[2022-09-10 06:58] LABS: BASOPHILS % (AUTO) 0 % (0-1); EOSINOPHILS % (AUTO) 0 % (0-6); HEMATOCRIT 33.8 % (35.0-45.0); HEMOGLOBIN 10.9 g/dl (12.0-16.0); LYMPHOCYTES # (AUTO) 0.3 X10'3 (1.1-4.8); LYMPHOCYTES % (AUTO) 7.2 % (21-51); MEAN CORPUSCULAR HEMOGLOBIN 31.8 PG (27.0-31.0); MEAN CORPUSCULAR HGB CONC 32.2 g/dL (33.0-36.5); MEAN CORPUSCULAR VOLUME 98.9 FL (78-98); MEAN PLATELET VOLUME 7.4 FL (7.4-10.4); MONOCYTES # (AUTO) 0.3 X10'3 (0-0.9); MONOCYTES % (AUTO) 5.7 % (2-12); NEUTROPHILS # (AUTO) 4.1 X10'3 (1.8-7.7); NEUTROPHILS % (AUTO) 87.1 % (42-75); PLATELET COUNT 209 X10'3 (140-440); RED BLOOD COUNT 3.42 X10'6 (4.20-5.60); RED CELL DISTRIBUTION WIDTH 14.6 % (11.5-14.5); WHITE BLOOD COUNT 4.7 X10'3 (4.5-11.0)
[2022-09-10 07:01] LABS: ALBUMIN 2.9 G/DL (3.4-5.0); ANION GAP 2 (8-16); BLOOD UREA NITROGEN 39 MG/DL (7-18); BUN/CREATININE RATIO 30.7 (10.0-20.0); CALCIUM 8.4 MG/DL (8.5-10.1); CHLORIDE 102 MMOL/L (99-107); CREATININE 1.27 MG/DL (0.40-0.90); GLUCOSE 153 MG/DL (70-104); POTASSIUM 4.5 MMOL/L (3.5-5.1); SODIUM 142 MMOL/L (135-145); TOTAL CARBON DIOXIDE 37.7 MMOL/L (24-32); eGFR 41 ML/MIN
[2022-09-10] MEDS: pantoprazole 40MG/NS 100ML BAG 100 ML IV SCH (08:32)
[2022-09-10] MEDS: acetaZOLAMIDE IV 500mg inj IV SCH (08:40)
[2022-09-10] MEDS: heparin, porcine 5000 units/ml vial SQ SCH (08:40)
[2022-09-10] MEDS: losartan 50mg tablet PO SCH (08:41)
[2022-09-10] MEDS: ESCITALOPRAM OXALATE 5 MG TABLET PO SCH (08:41)
[2022-09-10] MEDS: methylPREDNISolone sod succ/PF 40mg inj. IV SCH (08:42)
[2022-09-10] MEDS: triamterene/HCTZ 37.5/25mg tablet PO SCH (08:44)
[2022-09-10] MEDS: CefTRIAXone 2gm/D5W 50ml BAG 50 ML IV SCH (09:00)
[2022-09-10] MEDS: azithromycin/NS 500mg/250ml 250 ML IV SCH (10:16)
[2022-09-10 11:00] VITALS: BP 131/74
[2022-09-10] MEDS ORDERED: LACT1CAP74 PO (13:41)
[2022-09-10] MEDS ORDERED: PRED10TA23 PO (13:41)
[2022-09-10] MEDS ORDERED: CEFD300C3 PO (13:41)
[2022-09-10] MEDS ORDERED: BUDE10.2 INH (13:41)
--- NOTE | 2022-09-10 17:30 | NUR ---
DC inst provided to pt & pt's . IV DC'd, tip intact. All belongings sent w/pt. WC to vehicle.
== END 2022-09-10 16:55 | disposition home or self-care (01) | DRG 871 ==
LOC: ER 19:51 → ED HOLD 09-07 02:59 → ICU 2S 09-07 04:31 → PCU 3S 09-08 14:11
PROVIDERS: ADMIT Student in an Organized Health Care Education/Training Program; ATTEND Family Medicine
PROC: 5A09357 Assistance with Respiratory Ventilation, Less than 24 Consecutive Hours, Continuous Positive Airway Pressure (ICD-10-PCS; principal; 2022-09-07)
PROC: 5A09357 Assistance with Respiratory Ventilation, Less than 24 Consecutive Hours, Continuous Positive Airway Pressure (ICD-10-PCS; 2022-09-08)
PROC: 5A09357 Assistance with Respiratory Ventilation, Less than 24 Consecutive Hours, Continuous Positive Airway Pressure (ICD-10-PCS; 2022-09-09)
PROC: 5A09357 Assistance with Respiratory Ventilation, Less than 24 Consecutive Hours, Continuous Positive Airway Pressure (ICD-10-PCS; 2022-09-10)
DX: A41.9 Sepsis, unspecified organism (principal); J18.9 Pneumonia, unspecified organism; J96.22 Acute and chronic respiratory failure with hypercapnia; J44.1 Chronic obstructive pulmonary disease with (acute) exacerbation; N17.9 Acute kidney failure, unspecified; G45.9 Transient cerebral ischemic attack, unspecified; E87.29 Other acidosis; J44.0 Chronic obstructive pulmonary disease with (acute) lower respiratory infection; R73.9 Hyperglycemia, unspecified; F41.9 Anxiety disorder, unspecified; D50.9 Iron deficiency anemia, unspecified; I12.9 Hypertensive chronic kidney disease with stage 1 through stage 4 chronic kidney disease, or unspecified chronic kidney disease; N18.9 Chronic kidney disease, unspecified; F32.A Depression, unspecified; Z99.81 Dependence on supplemental oxygen; Z79.899 Other long term (current) drug therapy; Z87.891 Personal history of nicotine dependence; D72.819 Decreased white blood cell count, unspecified
CPT/HCPCS: 36415; 36600; 70450; 71045; 80048; 80053; 82803; 82948; 83735; 83880; 84484; 85007; 85018; 85025; 85610; 85730; 87081; 93005; 93306; 93880; 94640; 94660; 94760; 97116; 97161; 97530; 97535; 99285; A4349; A4615; A6213; A6250; A6258; A6449; C9113; G0378; J0456; J0696; J1120; J1644; J2270; J2920; J2930; J7040